=== PATIENT | male | born 1990 | race African-American/Black ===

== ENCOUNTER 2017-11-24 13:37 | Emergency (ER) | payer OTHER ==
[2017-11-24] MEDS: DIPHTH/TET/ACEL PERTUSS (ADULT) 0.5 ML VIAL IM* (14:05)
[2017-11-24] MEDS: LIDOCAINE 1% (MDV) 10 ML INJ INJ (14:46)
[2017-11-24] MEDS: LIDOCAINE 1% (MPF) 5 ML VIAL INJ (14:46)
[2017-11-24] MEDS: IBUPROFEN 800 MG TAB PO (14:55)
== END 2017-11-24 15:42 | disposition home or self-care (01) ==
LOC: FTE 13:37
DX: S61.212A Laceration without foreign body of right middle finger without damage to nail, initial encounter (principal); S61.214A Laceration without foreign body of right ring finger without damage to nail, initial encounter; W26.8XXA Contact with other sharp object(s), not elsewhere classified, initial encounter; Y92.9 Unspecified place or not applicable; Z23 Encounter for immunization
CPT/HCPCS: 12001; 73120; 90471; 90715; 99283-25

== ENCOUNTER 2017-11-26 18:42 | Emergency (ER) | payer OTHER | END 2017-11-26 20:55 | disposition home or self-care (01) | LOC: FTE 18:42 | DX: Z48.01 Encounter for change or removal of surgical wound dressing (principal) | CPT/HCPCS: 99281; Z7502 ==